=== PATIENT | male | born 2000 | race Hispanic/Latino ===

== ENCOUNTER 2020-01-18 08:00 | Day surgery (SDC) | payer MEDICAID ==
[2020-01-13 16:07] LABS: BASOPHILS % (AUTO) 0.3 % (0.0-5.0); EOSINOPHILS % (AUTO) 1.3 % (0.0-8.0); HEMATOCRIT 44.2 % (42-54); LYMPHOCYTES % (AUTO) 27.4 % (21.0-51.0); MEAN CORPUSCULAR HEMOGLOBIN 30.2 pg (27.0-33.0); MEAN CORPUSCULAR HGB CONC 34.4 g/dL (32.0-36.0); MEAN CORPUSCULAR VOLUME 87.9 fL (80-100); MONOCYTES % (AUTO) 8.3 % (3.0-13.0); NEUTROPHILS % (AUTO) 62.1 % (40.0-77.0); PLATELET COUNT (AUTO) 246 K/uL (130-400); RED BLOOD CELL COUNT(AUTO) 5.03 MIL/uL (4.50-6.20); RED CELL DISTRIBUTION WIDTH 12.4 % (11.0-15.5); WHITE BLOOD COUNT (AUTO) 6.9 K/uL (4.8-10.8)
[2020-01-13 16:16] LABS: CREATININE 0.7 mg/dL (0.5-1.5); POTASSIUM 4.2 mmol/L (3.5-5.1)
[2020-01-15] MEDS: CEFAZOLIN SODIUM 1 GM VIAL IVP SCH (12:15)
[2020-01-15 12:19] VITALS: BP 147/68
[~2020-01-18] VITALS: Ht 172.7 cm; Wt 112.2 kg
[2020-01-18] VITALS (17 sets, daily range): BP systolic 115–144; BP diastolic 58–85
[2020-01-18] MEDS ORDERED: LACTATED RINGERS 1000ML 1,000 ML IV ONE (09:08)
[2020-01-18] MEDS ORDERED: ALBUTEROL INHALER 90MCG/INH IH ONE (09:15)
[2020-01-18] MEDS ORDERED: SUCCINYLCHOLINE 200MG/10ML SYR ONE ×2 (09:15→09:23)
[2020-01-18] MEDS ORDERED: DEXAMETHASONE SOD PHOSPHATE 10MG/ML 1ML VIAL ONE (09:15)
[2020-01-18] MEDS ORDERED: LIDOCAINE PF 2% 5ML ABBOJECT ONE (09:15)
[2020-01-18] MEDS ORDERED: ONDANSETRON HCL 4 MG/2 ML VIAL ONE (09:16)
[2020-01-18] MEDS ORDERED: ROCURONIUM 10MG/1ML SYR 10 MG/ML ML ONE (09:16)
[2020-01-18] MEDS ORDERED: MIDAZOLAM HCL 1 MG/ML 2ML VIAL ONE (09:16)
[2020-01-18] MEDS ORDERED: PROPOFOL 10 MG/ML 20ML VIAL IV ONE (09:16)
[2020-01-18] MEDS ORDERED: FENTANYL CITRATE PF 50 MCG/1 ML 2ML VIAL ONE (09:16)
[2020-01-18] MEDS ORDERED: GLYCOPYRROLATE 1 MG/5 ML SYRINGE ONE (09:16)
[2020-01-18] MEDS: CEFAZOLIN SODIUM 1 GM VIAL IVP SCH (09:45)
[2020-01-18] MEDS ORDERED: BUPIVACAINE/PF 0.5% 30ML VIAL ONE (10:27)
[2020-01-18] MEDS ORDERED: BACITRACIN 28.4 GM OINT TP ONE (10:29)
[2020-01-18] MEDS ORDERED: METOCLOPRAMIDE 10 MG/2 ML VIAL ONE (10:41)
== END 2020-01-18 12:20 | disposition home or self-care (01) ==
LOC: DAH 08:00
PROVIDERS: ATTEND Surgery
DX: L05.01 Pilonidal cyst with abscess (principal)
CPT/HCPCS: 11771; 36415; 80048; 85025; A4215; A4221; A4222; A4223; A4452; A4606; A4663; A6260; C9803; J0330 ×2; J0690; J1100; J2001; J2250; J2405; J2704; J2765; J3010; J3490 ×2; J7120 ×2; U0003

== ENCOUNTER 2020-01-23 09:53 | Emergency (ER) | payer MEDICAID ==
[2020-01-23] MEDS ORDERED: ZOSYN 3.375GM+NS 50ML 50 ML IV ONE (11:01)
[2020-01-23] MEDS ORDERED: KETOROLAC TROMETHAMINE 30MG/ML ONE (11:02)
[2020-01-23] MEDS ORDERED: SODIUM CHLORIDE 0.9% 1000ML 1,000 ML IV ONE (11:03)
[2020-01-23 11:11] LABS: BASOPHILS % (AUTO) 0.2 % (0.0-5.0); EOSINOPHILS % (AUTO) 1.6 % (0.0-8.0); HEMATOCRIT 40.3 % (42-54); LYMPHOCYTES % (AUTO) 18.4 % (21.0-51.0); MEAN CORPUSCULAR HEMOGLOBIN 30.8 pg (27.0-33.0); MEAN CORPUSCULAR HGB CONC 35.2 g/dL (32.0-36.0); MEAN CORPUSCULAR VOLUME 87.4 fL (80-100); MONOCYTES % (AUTO) 9.2 % (3.0-13.0); NEUTROPHILS % (AUTO) 69.9 % (40.0-77.0); PLATELET COUNT (AUTO) 254 K/uL (130-400); RED BLOOD CELL COUNT(AUTO) 4.61 MIL/uL (4.50-6.20); RED CELL DISTRIBUTION WIDTH 11.9 % (11.0-15.5); WHITE BLOOD COUNT (AUTO) 8.2 K/uL (4.8-10.8)
[2020-01-23 11:15] LABS: CREATININE 0.8 mg/dL (0.5-1.5); POTASSIUM 4.2 mmol/L (3.5-5.1)
[2020-01-23] MEDS ORDERED: IOHEXOL-350 75 ML VIAL IV ONE (11:52)
== END 2020-01-23 14:04 | disposition home or self-care (01) ==
LOC: EDH 09:53
DX: L02.31 Cutaneous abscess of buttock (principal); G89.18 Other acute postprocedural pain; J45.909 Unspecified asthma, uncomplicated
CPT/HCPCS: 36415; 72193; 80048; 85025; 87040; 96365; 96366; 96375; 99285; J1885; J2543; J7030; Q9967